=== PATIENT | male | born 1955 | race Caucasian/White ===

== ENCOUNTER 2017-04-09 07:15 | Day surgery (SDC) | payer MEDICAID ==
[2017-04-09] MEDS ORDERED: Lactated Ringer's 1,000 ML IV ONE (07:46)
[2017-04-09 08:27] VITALS: O2SAT 98
[2017-04-09] MEDS ORDERED: Propofol 10 mg/ml Inj (20 ML) ONE (08:43)
[2017-04-09] MEDS ORDERED: Midazolam 2 MG/2 ML VIAL ONE (08:43)
[2017-04-09 09:42] VITALS: TEMP 97
[2017-04-09 10:00] VITALS: BP 105/63; PULSE 68; RESP 16
== END 2017-04-09 10:30 | disposition home or self-care (01) ==
LOC: H.ENDO 07:15
PROVIDERS: ATTEND Internal Medicine Gastroenterology
DX: Z12.11 Encounter for screening for malignant neoplasm of colon (principal); K64.8 Other hemorrhoids; D12.5 Benign neoplasm of sigmoid colon; K76.6 Portal hypertension; K31.89 Other diseases of stomach and duodenum; K31.9 Disease of stomach and duodenum, unspecified; K74.60 Unspecified cirrhosis of liver; K29.50 Unspecified chronic gastritis without bleeding; B96.81 Helicobacter pylori [H. pylori] as the cause of diseases classified elsewhere; F10.10 Alcohol abuse, uncomplicated
CPT/HCPCS: 43239; 45380; 88305; 88342; J2250; J2704; J7120